=== PATIENT | male | born 1985 | race Asian ===

== ENCOUNTER → 2016-11-27 | Outpatient (CLI) | payer OTHER ==
--- NOTE | 2016-11-27 18:52 | Diagnostic Imaging Report ---
INDICATION: Back pain. Three views were obtained. FINDINGS: The alignment of the lumbar spine is normal. The vertebral body heights are well maintained. There is no spondylolysis or spondylolisthesis. No fractures are identified. IMPRESSION: Unremarkable lumbar spine series. Dictated by: Dictated on workstation # [id number]
== END ==
LOC: RAD 15:11
PROVIDERS: ATTEND Nurse Practitioner
DX: M54.5 Low back pain (principal)
CPT/HCPCS: 72100

== ENCOUNTER → 2017-10-25 | Outpatient (CLI) | payer OTHER ==
--- NOTE | 2017-10-25 16:09 | Diagnostic Imaging Report ---
EXAM: Abdomen at 3:59 hours INDICATION: Difficulty urinating. Two views were obtained. FINDINGS: There is gas in both the large and small bowel in a nonspecific fashion. This appearance is similar to the lumbar spine exam performed on 11/27/2016. There is no evidence for a bowel obstruction. There is no mass or organomegaly identified. There are no pathological calcifications although both kidneys are partially obscured by bowel gas and fecal material. The osseous structures are intact IMPRESSION: The bowel gas pattern is nonspecific. There is no acute abnormality identified. Dictated by: Dictated on workstation # [id number]
== END ==
LOC: RAD 15:29
PROVIDERS: ATTEND Nurse Practitioner Family
DX: R39.11 Hesitancy of micturition (principal)
CPT/HCPCS: 74018

== ENCOUNTER → 2017-10-26 | Outpatient (CLI) | payer OTHER ==
--- NOTE | 2017-10-26 11:50 | Diagnostic Imaging Report ---
INDICATION: Low back pain radiating to left leg. TIME OF EXAM: 11:34 AM FINDINGS: Curvature and alignment of the lumbar spine is normal. Vertebral body heights and disc spaces are well-maintained. No fracture or subluxation is identified. IMPRESSION: No acute abnormality is detected. Dictated by: Dictated on workstation # [id number]
== END ==
LOC: RAD 11:01
PROVIDERS: ATTEND Nurse Practitioner Family
DX: M54.5 Low back pain (principal); M79.605 Pain in left leg; R20.2 Paresthesia of skin
CPT/HCPCS: 72100

== ENCOUNTER → 2017-10-31 | Outpatient (CLI) | payer OTHER ==
--- NOTE | 2017-10-31 14:42 | Diagnostic Imaging Report ---
PROCEDURE: MRI lumbar spine. TECHNIQUE: Multiplanar, multisequence MRI of the lumbar spine was performed without contrast. DATE: October 31, 2017. COMPARISON: Lumbar spine radiographs October 26, 2017. INDICATION: 32-year-old male, low back pain radiating down the left leg. FINDINGS: There is normal lumbosacral spine alignment. There are Modic endplate degenerative changes adjacent to the L5-S1 disc space. There is mild disc height loss and disc desiccation at L4-L5 and L5-S1. There is no compression deformity or fracture. There is no visualized pars interarticularis defect. The visualized cord and conus medullaris is unremarkable and terminates at the L1 level. Additional disc heights are well-preserved. L1-L2: There is no disc bulge. The facet joints and ligamentum flavum are unremarkable. There is no foraminal narrowing. There is no spinal canal stenosis. L2-L3: There is no disc bulge. The facet joints and ligamentum flavum are unremarkable. There is no foraminal narrowing. There is no spinal canal stenosis. L3-L4: There is no disc bulge. The facet joints and ligamentum flavum are unremarkable. There is no foraminal narrowing. There is no spinal canal stenosis. L4-L5: There is an annular tear. There is a left paracentral disc extrusion which also extends in the region of the left lateral recess and left neural foramen. Some of the disc material extends above the level of the inferior endplate of L4 by approximately 6.6 mm at the level of the left neural foramen. This is perhaps best illustrated on axial T2 sequence image 21. There is contact of the descending left sided nerve roots and severe left lateral recess narrowing by the disc extrusion. The facet joints and ligamentum flavum are unremarkable. There is severe left foraminal narrowing. There is lzfe-vw-klyxrzpo spinal canal stenosis. L5-S1: There is a central disc protrusion without identified nerve root contact. The facet joints and ligamentum flavum are unremarkable. There is moderate right foraminal narrowing. There is no spinal canal stenosis. IMPRESSION: 1. L4-L5 annular tear with sizable left-sided disc extrusion as detailed above contacting the descending left-sided nerve roots, causing severe narrowing of the left lateral recess, and severe left neuroforaminal narrowing. There is also elck-of-yrmwudtb spinal stenosis at this level. 2. L5-S1 central disc protrusion without identified nerve root contact. There is moderate right foraminal narrowing at L5-S1. Dictated by: Dictated on workstation # [id number]
== END ==
LOC: RAD 12:39
PROVIDERS: ATTEND Nurse Practitioner Family
DX: M48.07 Spinal stenosis, lumbosacral region (principal); M51.27 Other intervertebral disc displacement, lumbosacral region; M51.36 Other intervertebral disc degeneration, lumbar region; M47.817 Spondylosis without myelopathy or radiculopathy, lumbosacral region; R20.2 Paresthesia of skin
CPT/HCPCS: 72148

== ENCOUNTER → 2017-11-15 | Outpatient (CLI) | payer OTHER ==
--- NOTE | 2017-11-15 15:53 | Diagnostic Imaging Report ---
INDICATION: Urethritis. FINDINGS: Right kidney measures 12.7 x 5.9 x 5.4 cm. Left kidney measures 12.8 x 6.7 x 5.6 cm. There is no mass, calculus, or hydronephrosis seen in either kidney. Urinary bladder appears normal. Both ureteral jets are seen. IMPRESSION: Negative renal ultrasound. Dictated by: Dictated on workstation # [id number]
== END ==
LOC: RAD 15:00
PROVIDERS: ATTEND Urology
DX: N34.2 Other urethritis (principal); N41.9 Inflammatory disease of prostate, unspecified
CPT/HCPCS: 76770

== ENCOUNTER 2017-11-22 05:38 | Outpatient (CLI) | payer OTHER ==
[~2017-11-22] VITALS: Ht 165.1 cm; Wt 86.2 kg
[2017-11-23] MEDS ORDERED: PHEN-640 PO (12:48)
[2017-11-23] MEDS ORDERED: LEVO500T2 PO (12:48)
== END 2017-11-22 14:41 ==
LOC: PREOP 05:38
PROVIDERS: ATTEND Urology
DX: Z01.818 Encounter for other preprocedural examination (principal); N34.2 Other urethritis

== ENCOUNTER 2017-11-23 10:17 | Day surgery (SDC) | payer OTHER ==
[~2017-11-23] VITALS: Ht 165.1 cm; Wt 86.2 kg
[2017-11-23] MEDS ORDERED: CATHETER FLUSH 10 ML SYR IV PRN (10:30)
[2017-11-23] MEDS ORDERED: cefTRIAXone 1 GM/NS 50 ML IVPB IV ONE ×2 (10:30)
[2017-11-23] MEDS ORDERED: MIDAZOLAM 2 MG/2 ML (VERSED) VIAL IVP ONE (11:00)
[2017-11-23 11:06] VITALS: BP 131/96
[2017-11-23] MEDS ORDERED: cefTRIAXone INJECTION 1,000 MG in NS (IVPB) 50 ML IV ONE (11:15)
[2017-11-23] MEDS ORDERED: LACTATED RINGERS 1,000 ML IV PRN (11:17)
[2017-11-23] MEDS ORDERED: ROCURONIUM 50 MG/5 ML (ZEMURON) VIAL IV ONE (11:31)
[2017-11-23] MEDS ORDERED: ONDANSETRON 4 MG/2 ML (SDV) Z0FRAN ONE (11:31)
[2017-11-23] MEDS ORDERED: proPOfol 200 MG/20 ML (DIPRIVAN) VIAL IV ONE (11:31)
[2017-11-23] MEDS ORDERED: LIDOCAINE PF 2% 5 ML (XYLOCAINE) VIAL ONE (11:31)
[2017-11-23] MEDS ORDERED: MIDAZOLAM 2 MG/2 ML (VERSED) VIAL ONE (11:32)
[2017-11-23] MEDS ORDERED: fentaNYL INJECTION 100 MCG/2 ML AMP ONE (11:32)
--- NOTE | 2017-11-23 12:06 | Progress Note-Pre Operative ---
Pre-Operative Progress Note H&P Reviewed The H&P was reviewed, patient examined and no changes noted. Date Seen by Provider: Nov 23, 2017 Time Seen by Provider: 12:05 Date H&P Reviewed: Nov 23, 2017 Time H&P Reviewed: 12:05 Pre-Operative Diagnosis: URETHRITIS, POSSIBLE URTHRAL STRICTURE SANDOR BELLO MD Nov 23, 2017 12:06 pm
--- NOTE | 2017-11-23 12:07 | Progress Note-Post Operative ---
Post-Operative Progess Note Surgeon (s)/School Psychology Professor (s) Surgeon SANDOR BELLO MD School Psychology Professor: N/A Pre-Operative Diagnosis URETHRITIS, POSSIBLE URTHRAL STRICTURE Post-Operative Diagnosis URETHRAL STRICTURE Procedure & Operative Findings Date of Procedure 11/23/17 Procedure Performed/Findings CYSTOSCOPY Anesthesia Type GENERAL Estimated Blood Loss Estimated blood loss (mL): N/A Specimens/Packing Specimens Removed N/A Packing: N/A SANDOR BELLO MD Nov 23, 2017 12:07 pm
[2017-11-23] MEDS ORDERED: LIDOCAINE UROJET 2% GEL 10 ML PKG ONE (12:14)
[2017-11-23] MEDS ORDERED: SEVOFLURANE (ULTANE) 15 ML INHAL SOLN ONE ×2 (12:28→12:34)
--- NOTE | 2017-11-23 12:40 | Discharge Inst-Urology ---
Discharge Inst-Urology Discharge Medications New, Converted, or Re-newed RX: RX on Chart Patient Instructions/Follow Up Plan Please make appointment to been seen in office in 2 weeks. Please schedule an outpatient retrograde urethrogram for next week Increase oral fluids for 48 hours and then as needed. Diet and Activity as tolerated. If questions or concerns contact your physician Or seek help at emergency department. SANDOR BELLO MD Nov 23, 2017 12:40 pm
[2017-11-23] MEDS ORDERED: PHEN-640 PO (12:48)
[2017-11-23] MEDS ORDERED: LEVO500T2 PO (12:48)
[2017-11-23 13:25] VITALS: BP 124/90
[2017-11-23 13:55] VITALS: BP 108/79
[2017-11-23 14:37] VITALS: BP 108/79
--- NOTE | 2017-11-23 14:43 | OPERATIVE REPORT ---
DATE OF SERVICE: 11/23/2017 PREOPERATIVE DIAGNOSIS: Urethritis, possible stricture. POSTOPERATIVE DIAGNOSIS: Urethritis, possible stricture. OPERATION PERFORMED: Cystoscopy. SURGEON: Dr. Hiren Bello. ANESTHESIA: General. COMPLICATIONS: None. DISCRIPTION OF PROCEDURE: Under satisfactory general anesthesia, the patient in lithotomy position, genitalia were prepped and draped in the usual sterile fashion. Urethra was infiltrated with lidocaine jelly and a cystoscope was introduced under vision. The anterior urethra showed a narrow urethral stricture not admitting the scope and looked that it was a long one beyond that distal part. I did not attempt to do any the time since it was not a simple localized stricture endoscopically. I elected to stop and perform later on a retrograde urethrogram to completely study the stricture and manage accordingly, which was previously explained to the patient preoperatively. The patient tolerated the procedure and anesthesia well and was sent to recovery room in stable condition. Job ID: [id number] DocumentID: [id number] Dictated Date: 11/23/2017 12:39:01 Senior Technologist Date: 11/23/2017 14:42:30 Dictated By: HIREN BELLO MD
== END 2017-11-23 14:34 | disposition home or self-care (01) ==
LOC: SDC 10:17
PROVIDERS: ATTEND Urology
DX: N34.2 Other urethritis (principal); N35.9 Urethral stricture, unspecified
CPT/HCPCS: 87081

== ENCOUNTER → 2017-12-13 | Outpatient (CLI) | payer OTHER ==
[~2017-12-13] MED LIST: LEVO500T2 PO; PHEN-640 PO
== END ==
LOC: RAD 09:05
PROVIDERS: ATTEND Urology
DX: Z53.20 Procedure and treatment not carried out because of patient's decision for unspecified reasons (principal); N35.9 Urethral stricture, unspecified